=== PATIENT | female | born 1970 | race Caucasian/White ===

== ENCOUNTER 2016-10-18 07:28 | Emergency (ER) | payer OTHER ==
[~2016-10-18] VITALS: Ht 160 cm; Wt 77.1 kg
[~2016-10-18 07:28] MED LIST: IBUP800T99 PO; LEVO500T6 PO
[2016-10-18] MEDS ORDERED: KETOROLAC 60 MG/2 ML VIAL IM ONE (07:35)
[2016-10-18 07:38] VITALS: BP 134/83
[2016-10-18] MEDS ORDERED: LIDOCAINE 1% 500 MG/50 ML VIAL INJ ONE (07:55)
[2016-10-18 08:28] VITALS: BP 128/76
== END 2016-10-18 08:28 | disposition home or self-care (01) ==
LOC: MED 07:28
DX: S01.01XA Laceration without foreign body of scalp, initial encounter (principal); F41.9 Anxiety disorder, unspecified; E11.9 Type 2 diabetes mellitus without complications; Z88.2 Allergy status to sulfonamides; Z88.5 Allergy status to narcotic agent; Z88.6 Allergy status to analgesic agent; Z79.891 Long term (current) use of opiate analgesic; W22.8XXA Striking against or struck by other objects, initial encounter; Y93.89 Activity, other specified; Y92.89 Other specified places as the place of occurrence of the external cause; Y99.8 Other external cause status
CPT/HCPCS: 12001; 96372; 99284; J1885; J2001

== ENCOUNTER 2018-09-24 11:09 | Emergency (ER) | payer BC, OTHER ==
[~2018-09-24] VITALS: Ht 160 cm; Wt 77.1 kg
[~2018-09-24 11:09] MED LIST changes: +IBUP-2217 PO; -IBUP800T99 PO; -LEVO500T6 PO
[2018-09-24 11:33] VITALS: BP 137/78
--- NOTE | 2018-09-24 11:40 | NUR ---
PT REFFERED BY URGENT CARE W C/O RUQ PAIN RADIATING TO R FLANK/UPPER BACK 8/10 AND SHARP X4 DAYS. PT STATES SHE HAS HAD N/V/FEVER AND CHILLS. DENIES DYSURIA, FREQUENCY, ETC. BOWEL SOUNDS PRESENT X4, ABDOMEN SOFT/FLAT AND TENDER TO PALPATION IN THE RUQ AREA. PT IS AFEBRILE AT THIS TIME. BED IN LOW POSITION, SIDE RAIL UP X1
--- NOTE | 2018-09-24 11:41 | NUR ---
DR. FRASER EVALUATING PT AT BEDSIDE
[2018-09-24] MEDS ORDERED: NACL 0.9% 1,000 ML IV ONE (11:45)
[2018-09-24 12:04] LABS: BILIRUBIN,URINE NEGATIVE (NEGATIVE); BLOOD, URINE TRACE-L (NEGATIVE); COLOR,URINE YELLOW (YELLOW); NITRITE, URINE NEGATIVE (NEGATIVE); UGLUCOSE NEGATIVE (NEGATIVE)
[2018-09-24 12:04] LABS: BASOPHILS # (AUTO) 0.1 K/uL (0.00-0.22); BASOPHILS % (AUTO) 0.5 % (0.0-2.0); EOSINOPHILS # (AUTO) 0.1 K/uL (0-0.4); EOSINOPHILS % (AUTO) 0.5 % (0.0-4.0); HEMATOCRIT 42.2 % (36-48); HEMOGLOBIN 14.1 g/dL (12.0-16.0); LYMPHOCYTES # (AUTO) 1.3 K/uL (2.5-16.5); LYMPHOCYTES % (AUTO) 11.1 % (20.5-51.1); MEAN CORPUSCULAR HEMOGLOBIN 30 pg (27-31); MEAN CORPUSCULAR HGB CONC 34 g/dL (33-37); MEAN CORPUSCULAR VOLUME 89.3 fL (80-94); MONOCYTES # (AUTO) 1.1 K/uL (0.8-1.0); MONOCYTES % (AUTO) 9.8 % (1.7-9.3); NEUTROPHILS # (AUTO) 9.1 K/uL (1.8-7.7); NEUTROPHILS % (AUTO) 78.1 % (42.2-75.2); PLATELET COUNT (AUTO) 232 K/uL (140-450); RED BLOOD CELL COUNT(AUTO) 4.72 MIL/uL (4.20-5.40); RED CELL DISTRIBUTION WIDTH 13.4 % (11.6-13.7); WHITE BLOOD COUNT (AUTO) 11.7 K/uL (4.8-10.8)
[2018-09-24 12:14] LABS: ANION GAP 11.3 (8-16); CARBON DIOXIDE 27.4 mmol/L (21-32); POTASSIUM 3.7 mmol/L (3.5-5.1)
[2018-09-24 12:21] LABS: ALBUMIN 3.1 g/dL (3.4-5.0); TOTAL BILIRUBIN 0.6 mg/dL (0.0-1.0)
--- NOTE | 2018-09-24 12:30 | NUR ---
pt resting in bed, provided her with ice chips per request
[2018-09-24 12:47] LABS: APPEARANCE,URINE SLIGHTLY HAZY (CLEAR); RBC,URINE 0-5 /HPF (0-5)
[2018-09-24 12:48] LABS: LEUKOCYTE ESTERASE ,URINE 1+ (NEGATIVE)
[2018-09-24] MEDS ORDERED: KETOROLAC 30 MG/ML VIAL IVP ONE (13:20)
[2018-09-24] MEDS ORDERED: cefTRIAXone 1,000 MG VIAL ONE (13:23)
--- NOTE | 2018-09-24 13:30 | NUR ---
pt asleep in bed, family at bedside
--- NOTE | 2018-09-24 14:33 | NUR ---
Patient discharged with v/s stable. Written and verbal after care instructions given and explained. Patient alert, oriented and verbalized understanding of instructions. Ambulatory with steady gait. All questions addressed prior to discharge. ID band removed. Patient advised to follow up with PMD. Rx of naprosyn & ciprofloxin given. Patient educated on indication of medication including possible reaction and side effects. Opportunity to ask questions provided and answered.
[2018-09-24 14:34] VITALS: BP 135/70
== END 2018-09-24 14:33 | disposition home or self-care (01) ==
LOC: MED 11:09
DX: N12 Tubulo-interstitial nephritis, not specified as acute or chronic (principal); R11.2 Nausea with vomiting, unspecified; E11.9 Type 2 diabetes mellitus without complications; I10 Essential (primary) hypertension; Z90.89 Acquired absence of other organs; Z88.2 Allergy status to sulfonamides; Z88.5 Allergy status to narcotic agent; Z88.6 Allergy status to analgesic agent
CPT/HCPCS: 36415; 76705; 80053; 81001; 81025; 82150; 83690; 85025; 87086; 96361; 96365; 96375; 99284; J0696; J1885; J7030; Q0092